=== PATIENT | female | born 1970 | race Caucasian/White ===

== ENCOUNTER 2017-05-07 23:25 | Emergency (ER) | payer OTHER ==
[~2017-05-07] VITALS: Ht 170.2 cm; Wt 78.9 kg
[2017-05-07 23:32] VITALS: BP 168/79
[2017-05-08] MEDS ORDERED: diphenhydrAMINE 50 MG CAP PO ONE (00:30)
[2017-05-08] MEDS ORDERED: CEPHALEXIN 500 MG CAP PO ONE (00:30)
[2017-05-08 00:45] VITALS: BP 138/76
[2017-05-08] MEDS ORDERED: HYDROCORTISONE 1% CRM 30 GM TUBE TP SCH (09:00)
== END 2017-05-08 00:45 | disposition home or self-care (01) ==
LOC: MED 23:25
DX: L03.115 Cellulitis of right lower limb (principal); I10 Essential (primary) hypertension
CPT/HCPCS: 99283; Q0163

== ENCOUNTER 2019-11-05 19:54 | Emergency (ER) | payer OTHER ==
[~2019-11-05] VITALS: Ht 170.2 cm; Wt 81.2 kg
[2019-11-05 20:17] VITALS: BP 150/97
[2019-11-05 20:57] LABS: BASOPHILS # (AUTO) 0.1 K/uL (0.00-0.22); BASOPHILS % (AUTO) 0.7 % (0.0-2.0); EOSINOPHILS # (AUTO) 0.2 K/uL (0-0.4); EOSINOPHILS % (AUTO) 2.2 % (0.0-4.0); HEMATOCRIT 40.2 % (36-48); HEMOGLOBIN 13.4 g/dL (12.0-16.0); LYMPHOCYTES # (AUTO) 1.6 K/uL (2.5-16.5); MEAN CORPUSCULAR HEMOGLOBIN 30 pg (27-31); MEAN CORPUSCULAR HGB CONC 33 g/dL (33-37); MEAN CORPUSCULAR VOLUME 90.5 fL (80-94); MONOCYTES % (AUTO) 10.2 % (1.7-9.3); NEUTROPHILS % (AUTO) 70.9 % (42.2-75.2); PLATELET COUNT (AUTO) 296 K/uL (140-450); RED BLOOD CELL COUNT(AUTO) 4.44 MIL/uL (4.20-5.40); RED CELL DISTRIBUTION WIDTH 13.2 % (11.6-13.7); WHITE BLOOD COUNT (AUTO) 9.8 K/uL (4.8-10.8)
[2019-11-05 21:03] LABS: APPEARANCE,URINE CLEAR (CLEAR); BILIRUBIN,URINE NEGATIVE (NEGATIVE); BLOOD, URINE NEGATIVE (NEGATIVE); COLOR,URINE YELLOW (YELLOW); LEUKOCYTE ESTERASE ,URINE NEGATIVE (NEGATIVE); NITRITE, URINE NEGATIVE (NEGATIVE); PH,URINE 7.5 (5.0-9.0); UGLUCOSE NEGATIVE (NEGATIVE)
[2019-11-05 21:12] LABS: ALBUMIN 3.9 g/dL (3.4-5.0); ANION GAP 12.5 (8-16); CARBON DIOXIDE 30.5 mmol/L (21-32); CREATININE 0.8 mg/dL (0.6-1.3); TOTAL BILIRUBIN 0.2 mg/dL (0.0-1.0)
[2019-11-05 21:43] VITALS: BP 150/97
== END 2019-11-05 21:43 | disposition home or self-care (01) ==
LOC: MED 19:54
DX: R73.9 Hyperglycemia, unspecified (principal); I10 Essential (primary) hypertension; Z98.890 Other specified postprocedural states
CPT/HCPCS: 36415; 80053; 81003; 81025; 85025; 99283